=== PATIENT | female | born 1950 | race Caucasian/White ===

== ENCOUNTER → 2020-11-10 11:37 | Outpatient (CLI) | payer MEDICARE, OTHER, SELFPAY ==
--- NOTE | 2020-11-10 | DI.MRI.S_ITS ---
PROCEDURE: MR SHOULDER RT WO CON INDICATIONS: Impingement syndrome of right shoulder TECHNIQUE: Noncontrast oblique coronal T2 fast spin echo with fat saturation, oblique sagittal T1 spin echo and T2 fast spin echo with fat saturation, axial T1 spin echo and T2 fast spin echo with fat saturation through the shoulder. COMPARISON: [facility], CR, XR SHOULDER 2+ VIEWS RIGHT, 10/20/2020, 14:52. [facility], , SHOULDER WITHOUT CONTRAST, 01/14/2015, 13:01. FINDINGS: Rotator cuff: Supraspinatus tendinopathy and partial-thickness articular and bursal sided tear. No definite full-thickness defect is seen. Infraspinatus tendon appears grossly intact. Teres minor appears intact. Mild subscapularis tendinopathy. No atrophy of the rotator cuff muscles. Bones and bursae: No bone marrow contusions or fractures. Nonspecific T2 hyperintensity present in the proximal humeral diametaphysis which is nonspecific although probably incidental. Serial radiographic follow-up of this area could be performed as clinically warranted. Moderate acromioclavicular joint degeneration. Acromion demonstrates conventional anatomy, without an os acromiale. Mild subacromial-subdeltoid bursitis. Capsule and soft tissues: Labrum: Mild fraying of the superior labrum. No intrasubstance fluid signal intensity.. Biceps tendon: Long head of the biceps tendon intact. Rotator interval: Normal signal intensity. Coracohumeral ligament: Intact. IMPRESSION: Supraspinatus tendinopathy with partial thickness articular and bursal sided tear. Mild subscapularis tendinopathy Mild subacromial-subdeltoid bursitis Dictated by: Rios Harmon M.D. on 11/10/2020 at 12:46 Approved by: Rios Harmon M.D. on 11/10/2020 at 13:00
== END ==
PROVIDERS: PCP Internal Medicine; Referring Provider Orthopaedic Surgery; Visit Provider Orthopaedic Surgery
DX: M75.41 Impingement syndrome of right shoulder (principal); M75.111 Incomplete rotator cuff tear or rupture of right shoulder, not specified as traumatic; M75.51 Bursitis of right shoulder; M19.011 Primary osteoarthritis, right shoulder
CPT/HCPCS: 73221

== ENCOUNTER → 2021-02-25 14:06 | Outpatient (CLI) | payer MEDICARE, OTHER, SELFPAY ==
--- NOTE | 2021-02-25 14:11 | DI.MRI.S_ITS ---
PROCEDURE: MR SHOULDER LT WO CON INDICATIONS: Incomplete rotator cuff tear or rupture of left sh TECHNIQUE: Noncontrast oblique coronal T2 fast spin echo with fat saturation, oblique sagittal T1 spin echo and T2 fast spin echo with fat saturation, axial T1 spin echo and T2 fast spin echo with fat saturation through the shoulder. COMPARISON: [facility], MR, MR SHOULDER RT WO CON, 11/10/2020, 11:47. FINDINGS: Image quality: Excellent. Rotator cuff: Tendinosis and moderate grade articular and bursal surface partial thickness tear involving distal supraspinatus at its insertion on the humeral head is seen extending to musculotendinous junction. Distal infraspinatus and subscapularis tendinosis is seen. No full-thickness rotator cuff tendon rupture. Sagittal images demonstrate mild supraspinatus muscle atrophy. Bones and bursae: No bone marrow contusions or fractures. Mild to moderate acromioclavicular joint osteoarthritic changes are seen. Mild to moderate glenohumeral joint osteoarthritic changes also noted. There is small amount of joint fluid and subacromial subdeltoid bursal fluid. Capsule and soft tissues: Subtle signal abnormality and contour irregularity involving anterior inferior labrum at 5 to 6 o'clock position is seen concerning for focal anterior inferior labral tear. The glenohumeral ligaments are intact. The long head of the biceps tendinosis and low-grade intrasubstance partial-thickness tear is seen. The rotator interval appears normal, without fibrosis. The coracohumeral ligament is normal in thickness. IMPRESSION: 1. Tendinosis and moderate grade articular and bursal surface partial thickness tear involving distal supraspinatus extending to musculotendinous junction. Distal infraspinatus and subscapularis tendinosis. No full-thickness rotator cuff tendon rupture. Mild supraspinatus muscle atrophy. 2. 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 Small amount of joint effusion and subacromial subdeltoid bursal fluid. 3. Finding is concerning for subtle anterior inferior labral tear at 5 to 6 o'clock position. 4. Proximal intra-articular portion of long head of biceps tendinosis and mild to moderate grade intrasubstance partial-thickness tear. Dictated by: Rigoberto Murcia M.D. on 02/25/2021 at 15:48 Approved by: Rigoberto Murcia M.D. on 02/25/2021 at 15:51
== END ==
PROVIDERS: PCP Internal Medicine; Referring Provider Orthopaedic Surgery; Visit Provider Orthopaedic Surgery
DX: M75.112 Incomplete rotator cuff tear or rupture of left shoulder, not specified as traumatic (principal); M19.012 Primary osteoarthritis, left shoulder; S46.112A Strain of muscle, fascia and tendon of long head of biceps, left arm, initial encounter; M25.412 Effusion, left shoulder
CPT/HCPCS: 73221